=== PATIENT | male | born 1975 | race Caucasian/White ===

== ENCOUNTER 2017-10-22 18:03 | Observation (INO) | payer SELFPAY ==
[~2017-10-22 18:03] MED LIST: ISOVUE-370 76%-LOCM 1 ML ONE
[2017-10-22 19:36] LABS: CKMB 3.6 ng/mL (0-6.6); Troponin I Less than 0.010 ng/mL (< 0.028)
[2017-10-22] MEDS ORDERED: Nitroglycerin 0.4 MG TAB (25 Tab Bottle) PO PRN (20:06)
[2017-10-22] MEDS ORDERED: Bisacodyl 5 MG TAB PO PRN (20:06)
[2017-10-22] MEDS ORDERED: Ondansetron HCl/PF 4 MG/2 ML Vial IVP PRN (20:06)
[2017-10-22] MEDS ORDERED: Acetaminophen 650 MG Suppository PR PRN (20:06)
[2017-10-22] MEDS ORDERED: Acetaminophen 325 MG TAB PO PRN (20:06)
[2017-10-22] MEDS ORDERED: hydrALAZINE 20 MG/ML VIAL SLOW IVP PRN (20:10)
[2017-10-22] MEDS ORDERED: Potassium Chloride 20 MEQ TAB PO SCH (20:15)
--- NOTE | 2017-10-22 20:55 | CT ---
CT ANGIO CHEST WITH CONTRAST: 10/22/17 Multiple axial tomograms obtained through the chest. Pulmonary angio protocol was followed with multi planar reconstruction and 3D postprocessing. INDICATIONS: Chest pain and shortness of breath. Assess for pulmonary embolus. FINDINGS: Pulmonary arteries are suboptimally opacified. There is no evidence of proximal pulmonary embolus to the segmental level. Thoracic aorta is opacified and there is no evidence of dissection or aneurysm. The lung barajas are clear. No infiltrate or effusion. Mediastinum unremarkable. No adenopathy. Image through upper abdomen unremarkable. IMPRESSION: 1. No evidence of proximal pulmonary embolus. 2. No acute lung process identified. POS: AGW
--- NOTE | 2017-10-22 21:18 | HP ---
PRIMARY CARE PROVIDER: Dr. Kimmy Sommer. CHIEF COMPLAINT: Chest pain. HISTORY OF PRESENT ILLNESS: Mr. Bauer is a pleasant 42-year-old gentleman, who was seen at [facility] on 10/22/2017. He was transferred here from [place]. 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 He was in shelter for 6 years and was released 1 year ago. Prior to that, he used to use a drug greco d "Zuly." He reports that he has not used that drug in the last 1 year that he has been released. He used the drug "Zuly" yesterday. Around 11:30 a.m. today, he felt severe indigestion and nausea. He got out of the truck and felt kyle y short of breath. He was out of breath after taking only 3 steps. This was followed by diaphoresis , squeezing over the left side of his chest, lightheadedness, and he started feeling disoriented. He also felt like his face was swollen on the left side and he thought he had difficulty swallowing. T he pain was squeezing type of sensation, 7/10 at its worst, radiating to the left side of his neck, a ccompanied by numbness of the left arm. His met him and took him to the emergency room at [facility]. From there, he was transferred to [facility]. He currently rates his chest discomfort as 2/10. The patient reports that at times the chest pain is worse with deep breathing or coughing. The patient does not recall any relieving factors. REVIEW OF SYSTEMS: All other systems reviewed and found to be negative. PAST MEDICAL HISTORY: Spinal meningitis in 1992. PAST SURGICAL HISTORY: None. FAMILY HISTORY: Mother had myocardial infarction at age 37, grandfather from myocardial infarct ion at age 51. SOCIAL HISTORY: The patient denies tobacco use or alcohol use. Recreational drug use as mentioned a radha. ALLERGIES: No known drug allergies. CURRENT MEDICATIONS: None. PHYSICAL EXAMINATION: GENERAL: On examination, Mr. Bauer is awake and alert, not in acute distress. He is obese. VITAL SIGNS: Blood pressure is 119/78, pulse 93, respiratory rate 16, temperature 97.6 degrees Fahre nheit, and oxygen saturation 97% on room air. EYES: No scleral icterus. No conjunctival pallor. ENT: Moist mucosal membranes, no oropharyngeal erythema or exudates. NECK: Supple, nontender, normal range of movement. Trachea is midline. RESPIRATORY: Accessory muscles of breathing are not active. Chest wall movements are symmetric bila terally. Lungs are clear to auscultation without wheeze, rhonchi or crepitations. CARDIOVASCULAR: S1 and S2 are heard, regular. Peripheral pulses palpable. No carotid bruit, no per icardial rub. ABDOMEN: Soft, nontender, bowel sounds heard, no hepatomegaly, no splenomegaly. NEUROLOGIC: Cranial nerves II-XII intact. Deep tendon reflexes are 2+. MUSCULOSKELETAL: Power is 5/5 in all 4 extremities. SKIN: No rashes or subcutaneous nodules. LYMPHATIC: No cervical lymphadenopathy. PSYCHIATRIC: Normal mood, normal affect, patient is oriented to person, place, and time. LABORATORY DATA AND IMAGING: Mr. Bauer's labs and investigations were reviewed. I reviewed his elec trocardiogram, which shows normal sinus rhythm, no ST changes to suggest an acute coronary syndrome. I also reviewed his chest x-ray, which does not show any pulmonary infiltrates. He also had noncont rast CT scan of the brain, which has been reported normal. He has normal troponin I x3, normal white count, normal hemoglobin, normal platelet count, INR 1.0, D-dimer less than 0.27 mcg/mL. Sodium 140 , potassium decreased at 3.4, blood urea nitrogen decreased at 8, normal creatinine, unremarkable agnieszka er profile, normal BNP, urine positive for trace blood and urine drug screen positive for amphetamine s. ASSESSMENT AND PLAN: Mr. Bauer is a pleasant 42-year-old gentleman, who was seen at [facility] on 10/22/2017. His problem list includes: 1. Chest pain: Etiology is unclear. He will be admitted to the hospital for telemetry monitoring a nd for further workup. Given the history of pleuritic chest pain, we will check CT angiogram to rule out pulmonary embolism, in case the low D-dimer is a false negative. We will also obtain a stress t est to make sure his chest pain is not of cardiac etiology, especially given his history of multiple family members with heart disease. 2. Hypokalemia: We will replace potassium and recheck potassium level. 3. Recreational drug use: The patient has been counseled regarding cessation of recreational drug u se. 4. Hematuria: The patient has trace hematuria. He should follow up with his primary care provider for a repeat check and further management. Many thanks for allowing me to participate in your patient's care. Please feel free to contact me wi th any questions or concerns. LEVEL OF RISK: High. LEVEL OF COMPLEXITY: High.
[2017-10-22 21:58] VITALS: BMI 35.2
[2017-10-22 22:43] LABS: Troponin I Less than 0.010 ng/mL (< 0.028)
[2017-10-23 01:37] LABS: Troponin I Less than 0.010 ng/mL (< 0.028)
[2017-10-23 04:49] LABS: #Basophils 0.1 thou/uL (0.0-0.2); #Eosinphils 0.5 thou/uL (0.0-0.7); #Lymphocytes 2.2 thou/uL (1.20-3.40); #Neutrophils 3.6 thou/uL (1.40-6.50); %Eosinophils 6.2 % (0.0-10.0); %Lymphocytes 30.6 % (21.0-51.0); %Neutrophils 49.2 % (42.0-75.0); Mean Corpuscular HGB CONC 34.1 g/dL (32.0-36.0); Mean Corpuscular Hemoglobin 30.7 pg (27.0-31.0); Mean Corpuscular Volume 89.9 fL (78.0-98.0); Mean Platelet Volume 6.3 fL (7.4-10.4); Platelet Count 301 thou/uL (130-400); RBC Distribution Width 12.4 % (11.5-14.5); Red Blood Cell (RBC) Count 4.55 mill/uL (4.70-6.10); White Blood Cell (WBC) Count 7.3 thou/uL (4.8-10.8)
[2017-10-23 05:04] LABS: Anion Gap 13 mmol/L (10-20); BUN (Urea Nitrogen) 11 mg/dL (8.9-20.6); Calc. Creatinine Clearance 200 mL/min (70-130); Calcium 8.9 mg/dL (7.8-10.44); Carbon Dioxide 26 mmol/L (22-29); Chloride 105 mmol/L (98-107); Estimated GFR-MDRD Greater than 90; Glucose 90 mg/dL (70-105); Potassium 4.1 mmol/L (3.5-5.1); Sodium 140 mmol/L (136-145)
[2017-10-23 08:14] VITALS: TEMP 98.4
[2017-10-23] MEDS ORDERED: Enoxaparin Sodium 40 MG/0.4 ML SYRINGE SC SCH (09:00)
[2017-10-23] MEDS ORDERED: Aspirin 325 MG TAB PO SCH (09:00)
[2017-10-23 12:33] VITALS: BP 130/76
[2017-10-23] MEDS ORDERED: Regadenoson 0.4 MG/5 ML SYRINGE ONE (14:00)
--- NOTE | 2017-10-23 15:47 | NM ---
MYOCARDIAL PERFUSION SCAN: The patient was given 9 mCi of technetium sestamibi for rest imaging and 29 mCi for stress imaging. L eft ventricle was imaged with SPECT imaging and CT attenuation performed. INDICATION: Chest pain. The patient was stressed according to Lexiscan protocol. Patient obtained 60% of maximal age-predicte d heart rate. FINDINGS: On the nonattenuated images, there is decreased activity in the inferior wall on both stress and rest images. This corrects on attenuation correction with normal activity apparent throughout the left ve ntricle with CT attenuation correction. Wall motion appears normal. Ejection fraction is recorded at 59%. IMPRESSION: No evidence of reversible ischemia. POS: PARISA
--- NOTE | 2017-10-24 00:35 | DIS ---
PRIMARY CARE PROVIDER: Kimmy Sommer M.D. DATE OF ADMISSION: 10/22/2017 DATE OF DISCHARGE: 10/23/2017 DISCHARGE DIAGNOSIS: Chest pain. CONDITION OF PATIENT ON THE DAY OF DISCHARGE: Stable. I assessed Mr. Bauer on the day of discharge. He denies any chest pain, shortness of breath, fevers or chills. Vital signs are stable. S1 and S 2 are heard, regular. Lungs are clear to auscultation bilaterally. DISCHARGE MEDICATIONS: None. HOSPITAL COURSE: Mr. Bauer is a pleasant 42-year-old gentleman, who was admitted to [facility] on 10/22/2017 for chest pain. He had CT angiogram of the chest, which did not reve al any evidence of proximal pulmonary embolus. He also had a nuclear stress test, which did not show any evidence of reversible ischemia. Left ventricular ejection fraction was 59%. His chest pain resolved as well, and he is being discharged home in a stable condition. Many thanks for allowing me to participate in your patient's care. Please feel free to contact me wi th any questions or concerns. DISCHARGE DESTINATION: Home.
== END 2017-10-23 17:10 | disposition home or self-care (01) ==
LOC: ERS 18:03 → 2SW 19:55
PROVIDERS: ADMIT Internal Medicine; ATTEND Internal Medicine
DX: R07.9 Chest pain, unspecified (principal); E87.6 Hypokalemia; R31.9 Hematuria, unspecified
CPT/HCPCS: 36415; 36416; 71275; 78452; 80048; 84484; 85025; 93005; 93017; 94760; A9500; G0378; J1650; J2785